=== PATIENT | female | born 1975 | race Two or more races ===

== ENCOUNTER 2018-05-13 15:21 | Emergency (ER) | payer SELFPAY ==
[2018-05-13 15:34] VITALS: BP 138/86
--- NOTE | 2018-05-13 16:26 | ER Document Report ---
HPI - HPI Patient complains to provider of: Head congestion and cough Onset: Yesterday Pain Level: 3 Context: 43-year-old non-smoker is complaining of headache, sinus congestion, and some cough since last night. No fever or chills. No postnasal drip. She thinks she is vomiting due to the cough. No shortness of breath or chest pain. Associated Symptoms: None Exacerbated by: Denies Relieved by: Denies Similar symptoms previously: Yes Recently seen / treated by doctor: No - ROS ROS below otherwise negative: Yes Systems Reviewed and Negative: Yes All other systems reviewed and negative - NEURO Neurology: REPORTS: Headache - RESPIRATORY Respiratory: REPORTS: Coughing Past Medical History - General Information source: Patient - Social History Smoking Status: Never Smoker Frequency of alcohol use: None Drug Abuse: None Lives with: Family Family History: None Patient has suicidal ideation: No Patient has homicidal ideation: No - Medical History Medical History: Negative Renal/ Medical History: Denies: Hx Peritoneal Dialysis Past Surgical History: Reports: Hx Tubal Ligation Vertical Provider Document - CONSTITUTIONAL Agree With Documented VS: Yes Exam Limitations: No Limitations - INFECTION CONTROL TRAVEL OUTSIDE OF THE [place] IN LAST 30 DAYS: No - HEENT HEENT: Normocephalic. negative: Conjuctival Injection, Pharyngeal Erythema, Tympanic Membrane Red, Tympanic Membrane Bulging Notes: Boggy naris nontender sinus - NECK Neck: Supple. negative: Lymphadenopathy-Left, Lymphadenopathy-Right - RESPIRATORY Respiratory: Breath Sounds Normal, No Respiratory Distress - CARDIOVASCULAR Cardiovascular: Regular Rate, Regular Rhythm Course - Re-evaluation Re-evalutation: 05/13/18 16:47 Patient denies and wants to take Zofran. - Vital Signs Vital signs: Temp Pulse Resp BP Pulse Ox 98.9 F 107 H 16 138/86 H 100 05/13/18 15:32 05/13/18 15:32 05/13/18 15:32 05/13/18 15:32 05/13/18 15:32 Discharge - Discharge Clinical Impression: Upper respiratory infection Condition: Good Disposition: HOME, SELF-CARE Instructions: Acetaminophen, Upper Respiratory Illness ([facility]) Additional Instructions: Saline nasal spray 4 times a day Osop-[id number]-curqjwe Mucinex with decongestant Tylenol for discomfort Follow-up with primary care doctor in [place] if you are not better in a week, sooner if worse Prescriptions: Ondansetron HCl [Zofran 4 mg Tablet] 1 - 2 tab PO Q4H PRN #10 tablet PRN Reason: Forms: Return to Work
[2018-05-13] MEDS ORDERED: ONDANSETRON 4 MG TAB.RAPDIS PO ONE ×2 (16:44→16:47)
== END 2018-05-13 17:00 | disposition home or self-care (01) ==
LOC: ER 15:21
DX: J06.9 Acute upper respiratory infection, unspecified (principal); R09.81 Nasal congestion; R05 Cough; R51 Headache
CPT/HCPCS: 99283; S0119